=== PATIENT | male | born 1985 | race African-American/Black ===

== ENCOUNTER 2017-06-25 10:40 | Emergency (ER) | payer OTHER, SELFPAY ==
[2017-06-25 11:14] VITALS: BP 102/73; PULSE 62; RESP 22; TEMP 37.2; O2SAT 100; BMI 21.5
--- NOTE | 2017-06-25 11:28 | HMH.EDUTC ---
[facility] [place] Clinical Impression: Viral gastroenteritis Disposition: Home, Self-Care Condition on Discharge: Good Instructions: DI for Viral Gastroenteritis -- Adult Additional Instructions: * Monitor Temp. Seek treatment if fever develops. * Follow up immediately for new or worsening symptoms OR no noticeable improvement over the next 48 hours. * Increase fluids. Water, gatorade, powerade, juice OR pedialyte with limited formula/dairy in children. * No food is ok as long as you or your child is drinking. Once ready to eat, start bland. bananas, rice, applesauce, toast * Contagious until no diarrhea, vomiting, fever x 24 hours without medication * Avoid anti-diarrheals unless told otherwise. Best to let the virus run its course. * zofran as needed every 8 hours Follow up with primary care or return to [facility] for new or worsening symptoms OR no noticeable improvement over the next 48 hours. Prescriptions: Ondansetron [Zofran 4mg ODT] 4 mg PO Q8H PRN #9 tab.rapdis PRN Reason: Nausea And Vomiting Forms: Work/School Release Time of Disposition: 12:23 Medical Decision Making Vital Signs: 06/25/17 11:14 Temperature 98.9 F Temperature Source Temporal Artery Scan Pulse Rate [Brachial] 62 Respiratory Rate 22 Blood Pressure [Right Arm] 102/73 Blood Pressure Mean [Right Arm] 82 Blood Pressure Source [Right Arm] Automatic Cuff Blood Pressure Position [Right Arm] Sitting 02 Sat by Pulse Oximetry 100 Oxygen Delivery Method Room Air Orders (Tests/Meds): ED MEDICATIONS Discontinued Medications Generic Name Dose Route Start Last Admin Trade Name Freq PRN Reason Stop Dose Admin Ketorolac Tromethamine 60 mg 06/25/17 11:39 06/25/17 11:46 Toradol 60mg/2ml Vial IM 06/25/17 11:40 60 mg ONCE ONE Administration Promethazine HCl 25 mg 06/25/17 11:39 06/25/17 11:47 Phenergan 25mg/Ml 1ml Vial IM 06/25/17 11:40 25 mg ONCE ONE Administration Sodium Chloride 25 ml 06/25/17 11:39 Sod Chloride 0.9% 25ml Bag IV 06/25/17 11:40 ONCE ONE - Demario Inquiry Pt receiving controlled substance: No - Reevaluation(s) Time: 12:10 Reevaluation #1: patient sleeping. Darrel feels the medication helped greatly and he is ready to go home and sleep it off [facility] [place] - General Stated complaint: bad cuellar, vomiting,diarrhea Time Seen by Provider: 06/25/17 11:25 Mode of Arrival: Ambulatory Source of Information: Patient Limitations: No Limitations Description of Symptoms (Recalled from Triage Doc. by RN): H/A AND VOMITING SINCE THIS AM HEENT Symptoms (Recalled from RN notes): Yes Resp Symptoms (Recalled from RN notes): No Skin Symptoms (Recalled from RN notes): No MS Symptoms (Recalled from RN notes): No Functional Status (Recalled from RN notes): INDEPENDENT - History of Present Illness Provider Complaint: Here w/ fiance c/o N/V/D and headache waking him up this morning around 0830. Vomited and had diarrhea 3 times. Vomited last during registration and diarrhea last around 10am. Denies blood in either. Denies abdominal pain just like I need to poop . Vomiting described as what I ate yesterday and diarrhea loose, brown. No treatment prior to arrival. I just came right here . Trying to drink but comes right up . Headache 11/28. Throbbing all over. - Related Data Previous Rx's Medication Instructions Recorded Ondansetron [Zofran 4mg ODT] 4 mg PO Q8H PRN #9 tab.rapdis 06/25/17 Allergies Allergy/AdvReac Type Severity Reaction Status Date / Time No Known Allergies Allergy Unverified 06/08/17 14:00 - Worker's Comp Is this a Worker's Comp case?: No [facility] History I have reviewed the patient's past medical history: Yes Medical History: Denies:: Diabetes Mellitus Type 1, Diabetes Mellitus Type 2, Gastroesophageal Reflux Disease, Gastrointestinal Bleed, Hypertension Comment: denies any health history I am healthy Comment: hernia years ago - *Social
--- NOTE | 2017-06-25 11:39 | ED_ITS ---
[facility] [place] Clinical Impression: Viral gastroenteritis Disposition: Home, Self-Care Condition on Discharge: Good Instructions: DI for Viral Gastroenteritis -- Adult Additional Instructions: * Monitor Temp. Seek treatment if fever develops. * Follow up immediately for new or worsening symptoms OR no noticeable improvement over the next 48 hours. * Increase fluids. Water, gatorade, powerade, juice OR pedialyte with limited formula/dairy in children. * No food is ok as long as you or your child is drinking. Once ready to eat, start bland. bananas, rice, applesauce, toast * Contagious until no diarrhea, vomiting, fever x 24 hours without medication * Avoid anti-diarrheals unless told otherwise. Best to let the virus run its course. * zofran as needed every 8 hours Follow up with primary care or return to [facility] IMMEDIATELY for new or worsening symptoms OR no noticeable improvement over the next 48 hours. Prescriptions: Ondansetron [Zofran 4mg ODT] 4 mg PO Q8H PRN #9 tab.rapdis PRN Reason: Nausea And Vomiting Forms: Work/School Release Time of Disposition: 12:23 Medical Decision Making Vital Signs: 06/25/17 11:14 Temperature 98.9 F Temperature Source Temporal Artery Scan Pulse Rate [Brachial] 62 Respiratory Rate 22 Blood Pressure [Right Arm] 102/73 Blood Pressure Mean [Right Arm] 82 Blood Pressure Source [Right Arm] Automatic Cuff Blood Pressure Position [Right Arm] Sitting 02 Sat by Pulse Oximetry 100 Oxygen Delivery Method Room Air Orders (Tests/Meds): ED MEDICATIONS Discontinued Medications Generic Name Dose Route Start Last Admin Trade Name Freq PRN Reason Stop Dose Admin Ketorolac Tromethamine 60 mg 06/25/17 11:39 06/25/17 11:46 Toradol 60mg/2ml Vial IM 06/25/17 11:40 60 mg ONCE ONE Administration Promethazine HCl 25 mg 06/25/17 11:39 06/25/17 11:47 Phenergan 25mg/Ml 1ml Vial IM 06/25/17 11:40 25 mg ONCE ONE Administration Sodium Chloride 25 ml 06/25/17 11:39 Sod Chloride 0.9% 25ml Bag IV 06/25/17 11:40 ONCE ONE - Demario Inquiry Pt receiving controlled substance: No - Reevaluation(s) Time: 12:10 Reevaluation #1: patient sleeping. Darrel feels the medication helped greatly and he is ready to go home and sleep it off [facility] [place] - General Stated complaint: bad cuellar, vomiting,diarrhea Time Seen by Provider: 06/25/17 11:25 Mode of Arrival: Ambulatory Source of Information: Patient Limitations: No Limitations Description of Symptoms (Recalled from Triage Doc. by RN): H/A AND VOMITING SINCE THIS AM HEENT Symptoms (Recalled from RN notes): Yes Resp Symptoms (Recalled from RN notes): No Skin Symptoms (Recalled from RN notes): No MS Symptoms (Recalled from RN notes): No Functional Status (Recalled from RN notes): INDEPENDENT - History of Present Illness Provider Complaint: Here w/ fiance c/o N/V/D and headache waking him up this morning around 0830. Vomited and had diarrhea 3 times. Vomited last during registration and diarrhea last around 10am. Denies blood in either. Denies abdominal pain just like I need to poop . Vomiting described as what I ate yesterday and diarrhea loose, brown. No treatment prior to arrival. I just came right here . Trying to drink but comes right up . Headache 11/28. Throbbing all over. - Related Data Previous Rx's
== END 2017-06-25 12:27 | disposition home or self-care (01) ==
PROVIDERS: Emergency Provider Nurse Practitioner Family
DX: H66.003 Acute suppurative otitis media without spontaneous rupture of ear drum, bilateral (principal)
CPT/HCPCS: 96372; 99202

== ENCOUNTER 2017-08-28 12:13 | Emergency (ER) | payer OTHER, SELFPAY ==
[2017-08-28 12:22] VITALS: BP 128/80; PULSE 56; RESP 18; TEMP 36.6; O2SAT 99; BMI 21.5
[2017-08-28 12:24] VITALS: BMI 21.5
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
--- NOTE | 2017-08-28 12:29 | PC.NURSE ---
pt to radiology at this time.
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
[2017-08-28 17:05] VITALS: BP 125/76; PULSE 89; RESP 22; TEMP 36.8; O2SAT 97
== END 2017-08-28 16:10 | disposition short-term general hospital (02) ==
PROVIDERS: Emergency Provider Emergency Medicine
DX: S00.03XA Contusion of scalp, initial encounter (principal); Y04.2XXA Assault by strike against or bumped into by another person, initial encounter; S01.111A Laceration without foreign body of right eyelid and periocular area, initial encounter; F07.81 Postconcussional syndrome; Y00.XXXA Assault by blunt object, initial encounter
CPT/HCPCS: 70450; 70488; 72125; 96365; 96374; 96375; 99284; J2405